=== PATIENT | female | born 1990 | race Two or more races ===

== ENCOUNTER 2019-05-08 11:22 | Emergency (ER) | payer SELFPAY ==
[~2019-05-08] VITALS: Ht 162.6 cm; Wt 56.7 kg
--- NOTE | 2019-05-08 11:33 | NUR ---
R SIDE ABDOMINAL HERNIA WHIE CHANGING TIRES AT WORK LAST FRIDAY. PATIENT AA/OX4, NAD, VSS. KEPT COMFORTABLE.
[2019-05-08] MEDS ORDERED: KETOROLAC TROMETHAMINE INJ 30 MG/ML VIAL IV ONE (12:30)
[2019-05-08 12:39] LABS: BASOPHILS # (AUTO) 0.1 /CMM (0.0-0.2); BASOPHILS % (AUTO) 0.9 % (0.0-2.0); EOSINOPHILS % (AUTO) 1.3 % (0.0-6.0); HEMATOCRIT 41 % (33-45); HEMOGLOBIN 13.9 g/dL (11.5-14.8); LYMPHOCYTES # (AUTO) 2.3 /CMM (0.8-4.8); LYMPHOCYTES % (AUTO) 24.4 % (20.0-44.0); MEAN CORPUSCULAR HGB CONC 34 g/dl (31.0-36.0); MEAN CORPUSCULAR VOLUME 88 fL (82-100); MONOCYTES # (AUTO) 0.8 /CMM (0.1-1.30); MONOCYTES % (AUTO) 8.2 % (2.0-12.0); NEUTROPHILS # (AUTO) 6.1 /CMM (1.8-8.9); NEUTROPHILS % (AUTO) 65.2 % (43.0-81.0); PLATELET COUNT (AUTO) 374 /CMM (150-450); RED BLOOD CELL COUNT(AUTO) 4.66 MIL/uL (4.0-5.2); WHITE BLOOD COUNT (AUTO) 9.4 K/uL (4.3-11.0)
[2019-05-08 12:47] LABS: CREATININE 0.6 mg/dL (0.6-1.3); POTASSIUM 3.1 mmol/L (3.5-5.1)
[2019-05-08] MEDS ORDERED: IOHEXOL-300 100 ML VIAL IV ONE (13:11)
[2019-05-08] MEDS ORDERED: IV NS 0.9% 250 ML IV ONE (13:11)
[2019-05-08] MEDS ORDERED: CT SWABBABLE VALVE TRANS SET 1 EA INFUS.SET MC ONE (13:11)
--- NOTE | 2019-05-08 13:28 | NUR ---
PATIENT TAKEN TO CT SCAN.
--- NOTE | 2019-05-08 13:30 | NUR ---
PATIENT SIGNED A WAIVER FORM FOR CT SCAN AND TORADOL. UA TEST CANCELLED. EXPLAINED RISKS AND BENEFITS.
[2019-05-08] MEDS ORDERED: KETOROLAC TROMETHAMINE 15 MG/ML VIAL ONE (13:38)
--- NOTE | 2019-05-08 14:18 | NUR ---
Ambulatory with a steady gait. Denies pain or discomfort. IV removed. Catheter intact and site benign. Pressure and 4x4 applied to site. No bleeding noted. Patient discharged to home in stable condition. Written and verbal after care instructions given. Patient verbalizes understanding of instruction.
[2019-05-08 14:19] VITALS: BP 130/79
== END 2019-05-08 14:22 | disposition home or self-care (01) ==
LOC: ER 11:22
DX: L03.311 Cellulitis of abdominal wall (principal); F41.9 Anxiety disorder, unspecified; F32.9 Major depressive disorder, single episode, unspecified
CPT/HCPCS: 36415; 74177; 80048; 85025; 96374; 99284; J1885; J7050; Q9967